=== PATIENT | female | born 1970 | race American Indian/Alaskan Native ===

== ENCOUNTER 2017-03-17 16:22 | Emergency (ER) | payer OTHER ==
[2017-03-17 16:38] VITALS: BMI 24.4
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
[2017-03-17 16:48] VITALS: TEMP 98.2
[2017-03-17 19:12] VITALS: BP 126/75; PULSE 68; RESP 17; O2SAT 99
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
== END 2017-03-17 19:12 | disposition home or self-care (01) ==
LOC: ED 16:22
DX: S16.1XXA Strain of muscle, fascia and tendon at neck level, initial encounter (principal); S39.012A Strain of muscle, fascia and tendon of lower back, initial encounter; V49.9XXA Car occupant (driver) (passenger) injured in unspecified traffic accident, initial encounter; R07.81 Pleurodynia; M54.9 Dorsalgia, unspecified
CPT/HCPCS: 71101; 72050; 72110; 96372; 99285; J1885